=== PATIENT | male | born 1950 | race Caucasian/White ===

== ENCOUNTER 2022-06-25 07:45 | Inpatient (IN) | payer MEDICARE, MEDICAID ==
[~2022-06-25] VITALS: Ht 182.9 cm; Wt 113.0 kg
[2022-06-25 08:24] LABS: BASOPHILS % (AUTO) 0.3 % (0-1); EOSINOPHILS # (AUTO) 0.3 X10'3 (0-0.9); EOSINOPHILS % (AUTO) 3.3 % (0-6); HEMATOCRIT 38.8 % (42.0-52.0); HEMOGLOBIN 12.8 g/dl (14.0-17.9); LYMPHOCYTES # (AUTO) 1.4 X10'3 (1.1-4.8); LYMPHOCYTES % (AUTO) 15.8 % (21-51); MEAN CORPUSCULAR VOLUME 87.9 FL (78-98); MONOCYTES # (AUTO) 0.4 X10'3 (0-0.9); NEUTROPHILS # (AUTO) 6.5 X10'3 (1.8-7.7); NEUTROPHILS % (AUTO) 75.6 % (42-75); PLATELET COUNT 232 X10'3 (140-440); RED BLOOD COUNT 4.41 X10'6 (4.70-6.10); WHITE BLOOD COUNT 8.6 X10'3 (4.5-11.0)
[2022-06-25] MEDS ORDERED: OLANZapine 2.5MG tablet PO ONE (08:50)
[2022-06-25 09:04] LABS: ALANINE AMINOTRANSFERASE 61 U/L (12-78); ALBUMIN 3.5 G/DL (3.4-5.0); ALKALINE PHOSPHATASE 100 IU/L (46-116); ANION GAP 11 (8-16); ASPARTATE AMINO TRANSFERASE 53 U/L (10-37); BILIRUBIN,TOTAL 0.4 MG/DL (0.1-1.0); BLOOD UREA NITROGEN 26 MG/DL (7-18); BUN/CREATININE RATIO 26.8 (5.4-32.0); CALCIUM 8.8 MG/DL (8.5-10.1); CHLORIDE 102 MMOL/L (99-107); CREATININE 0.97 MG/DL (0.60-1.10); GLUCOSE 132 MG/DL (70-104); POTASSIUM 3.3 MMOL/L (3.5-5.1); SODIUM 137 MMOL/L (135-145); TOTAL CARBON DIOXIDE 24.5 MMOL/L (24-32); eGFR 76 ML/MIN
[2022-06-25] MEDS ORDERED: diltiazem 5mg/ml 5ml inj. IV ONE (09:40)
[2022-06-25] MEDS ORDERED: POTASSIUM BICARB 20meq eff tab 20 MEQ TABLET.EFF PO ONE (09:40)
[2022-06-25] MEDS ORDERED: normal saline 1000ml 1,000 ML IV ONE (09:50)
[2022-06-25] MEDS ORDERED: docusate sod 100mg capsule PO PRN (10:45)
[2022-06-25] MEDS ORDERED: glucagon, human recombinant 1mg kit SUBCUT PRN (10:45)
[2022-06-25] MEDS ORDERED: potassium Cl 40MEQ/1/2NS 520ml 520 ML IV PRN (10:45)
[2022-06-25] MEDS ORDERED: albuterol 2.5 MG/3 ML nebule NEB PRN (10:45)
[2022-06-25] MEDS ORDERED: acetaminophen 325mg tablet PO PRN ×2 (10:45)
[2022-06-25] MEDS ORDERED: potassium Cl 20 mEq SR tablet PO PRN (10:45)
[2022-06-25] MEDS ORDERED: insulin Lispro (HumaLOG) vial - multi-dose SQ SCH (10:45)
[2022-06-25] MEDS ORDERED: ondansetron/PF 4mg/2ml inj IV PRN (10:45)
[2022-06-25] MEDS ORDERED: magnesium 4gm in 100ml NS 100 ML IV PRN (10:45)
[2022-06-25] MEDS ORDERED: DEXTROSE 15 GM of carb/4 tabs (each vial/BOTTLE has 4 tablets) PO PRN ×2 (10:45)
[2022-06-25] MEDS ORDERED: ipratropium/albuterol 3ml nebule NEB PRN (10:45)
[2022-06-25] MEDS ORDERED: dextrose 50%-water 50ml dispensing syringe IV PRN ×2 (10:45)
[2022-06-25] MEDS ORDERED: HYDROcodone/acetaminophen 5mg/325mg tablet PO PRN (10:45)
[2022-06-25] MEDS ORDERED: MESSAGE TO PHARMACY PO ONE (10:45)
[2022-06-25] MEDS: nicotine 21mg patch - 24 hr TD SCH (11:22)
[2022-06-25 11:37] LABS: CLARITY,URINE CLEAR (Clear); COLOR,URINE YELLOW (Yellow); GLUCOSE, URINE NEGATIVE (Neg); KETONES,URINE NEGATIVE (Neg); LEUKOCYTE ESTERASE ,URINE NEGATIVE (Neg); NITRITES, URINE NEGATIVE (Neg); OCCULT BLOOD,URINE TRACE-INTACT (Neg); PH,URINE 5.5 (4.8-8.0); PROTEIN,URINE NEGATIVE (Neg); UROBILINOGEN,URINE 0.2 E.U/dL (0.2-1.0)
[2022-06-25 11:41] LABS: UA COLLECTION TYPE CLN CATCH MIDSTREAM
[2022-06-25 11:52] LABS: URINE AMPHETAMINE SCREEN NEGATIVE (Neg); URINE BARBITUATE SCREEN NEGATIVE (Neg); URINE BENZODIAZEPINES SCREEN NEGATIVE (Neg); URINE CANNABINOID SCREEN POSITIVE (Neg); URINE COCAINE SCREEN NEGATIVE (Neg); URINE METHADONE SCREEN NEGATIVE (Neg); URINE OPIATE SCREEN NEGATIVE (Neg); URINE PHENCYCLIDINE SCREEN NEGATIVE (Neg)
[2022-06-25 11:54] LABS: BACTERIA,URINE NONE SEEN /HPF (Neg); MUCUS STRANDS FEW /LPF (Neg); RBC,URINE 0-2 /HPF (0-2); SQUAMOUS EPITHELIAL CELL,UR FEW /LPF (FEW); WBC,URINE 0-4 /HPF (0-4)
[2022-06-25 11:57] LABS: HYALINE CASTS 0-3 /LPF (NEGATIVE)
[2022-06-25] MEDS ORDERED: RISP2TAB85 PO (18:51)
[2022-06-25] MEDS ORDERED: MIRT-87 PO (18:51)
[2022-06-25] MEDS ORDERED: METF-1203 PO (18:51)
[2022-06-25] MEDS ORDERED: LISI10TA27 PO (18:51)
[2022-06-25] MEDS ORDERED: LEVA15HF6 INH (18:51)
[2022-06-25] MEDS ORDERED: HYDR-3686 PO (18:51)
[2022-06-25] MEDS ORDERED: DOCU-22 PO (18:51)
[2022-06-25] MEDS ORDERED: FINA5TAB11 PO (18:51)
[2022-06-25] MEDS ORDERED: ATOR40TA72 PO (18:51)
[2022-06-25] MEDS ORDERED: FLO0.4C PO (18:51)
[2022-06-25] MEDS ORDERED: FERR-106 PO (18:51)
[2022-06-25 19:20] LABS: HEMOGLOBIN A1C 6.2 % (4.5-6.2)
[2022-06-25] MEDS: K and/or MAG REPLACEMENT MC SCH (20:00)
[2022-06-25 20:30] VITALS: BP 144/91
[2022-06-25] MEDS: insulin glargine (Lantus) pen - multi-dose SQ SCH (21:00)
[2022-06-25] MEDS: HYDROcodone/acetaminophen 10/325mg tab PO PRN (21:21)
[2022-06-25] MEDS: potassium Cl 20 mEq SR tablet PO PRN (21:22)
[2022-06-25] MEDS: apixaban 5mg tablet PO SCH (21:22)
[2022-06-25 23:27] VITALS: BP 140/76
[2022-06-25] MEDS: traZODone 50mg tablet PO PRN (23:55)
[2022-06-26] MEDS: potassium Cl 20 mEq SR tablet PO PRN (02:38)
[2022-06-26 02:47] VITALS: BP 147/75
[2022-06-26 06:00] VITALS: BP 156/97
[2022-06-26 07:16] LABS: BASOPHILS % (AUTO) 0.5 % (0-1); EOSINOPHILS # (AUTO) 0.3 X10'3 (0-0.9); EOSINOPHILS % (AUTO) 4.4 % (0-6); HEMATOCRIT 35.5 % (42.0-52.0); HEMOGLOBIN 11.6 g/dl (14.0-17.9); LYMPHOCYTES # (AUTO) 1.9 X10'3 (1.1-4.8); LYMPHOCYTES % (AUTO) 26.1 % (21-51); MEAN CORPUSCULAR HEMOGLOBIN 29.1 PG (27.0-31.0); MEAN CORPUSCULAR HGB CONC 32.8 g/dL (33.0-36.5); MEAN CORPUSCULAR VOLUME 88.7 FL (78-98); MEAN PLATELET VOLUME 8.5 FL (7.4-10.4); MONOCYTES # (AUTO) 0.5 X10'3 (0-0.9); MONOCYTES % (AUTO) 7.3 % (2-12); NEUTROPHILS # (AUTO) 4.4 X10'3 (1.8-7.7); NEUTROPHILS % (AUTO) 61.7 % (42-75); PLATELET COUNT 222 X10'3 (140-440); RED CELL DISTRIBUTION WIDTH 13.9 % (11.5-14.5); WHITE BLOOD COUNT 7.1 X10'3 (4.5-11.0)
[2022-06-26] MEDS: K and/or MAG REPLACEMENT MC SCH ×2 (08:00→19:01)
[2022-06-26] MEDS: HYDROcodone/acetaminophen 10/325mg tab PO PRN (08:35)
[2022-06-26] MEDS: nicotine 21mg patch - 24 hr TD SCH (08:35)
[2022-06-26] MEDS: apixaban 5mg tablet PO SCH ×2 (08:35→19:01)
--- NOTE | 2022-06-26 09:43 | NUR ---
DM consult: Per EMR pt with T2DM, well controlled with A1c 6.2%. DM education not warranted at this time. Recommend discontinuing CHO controlled restriction from diet order. Will continue to follow. Addendum: 06/26/22 at [address] Amended: Links added.
[2022-06-26 11:00] VITALS: BP 167/80
[2022-06-26 11:15] LABS: ALBUMIN 3.1 G/DL (3.4-5.0); ANION GAP 8 (8-16); ASPARTATE AMINO TRANSFERASE 50 U/L (10-37); BILIRUBIN,TOTAL 0.5 MG/DL (0.1-1.0); BLOOD UREA NITROGEN 22 MG/DL (7-18); BUN/CREATININE RATIO 25.6 (5.4-32.0); CALCIUM 8.7 MG/DL (8.5-10.1); CHLORIDE 106 MMOL/L (99-107); CREATININE 0.86 MG/DL (0.60-1.10); GLUCOSE 99 MG/DL (70-104); MAGNESIUM 1.8 MG/DL (1.5-2.4); POTASSIUM 3.9 MMOL/L (3.5-5.1); SODIUM 138 MMOL/L (135-145); TOTAL CARBON DIOXIDE 24.3 MMOL/L (24-32); TOTAL PROTEIN 6.1 G/DL (6.4-8.2); eGFR 87 ML/MIN
[2022-06-26 11:16] LABS: ALANINE AMINOTRANSFERASE 54 U/L (12-78); ALKALINE PHOSPHATASE 76 IU/L (46-116); CHOL/HDL RATIO 3.7 (0.00-4.99); CHOLESTEROL 146 MG/DL (0-200); HDL CHOLESTEROL 39 MG/DL (35-60); LDL CHOLESTEROL 90 MG/DL (50-100); TRIGLYCERIDES 83 MG/DL (20-135)
--- NOTE | 2022-06-26 11:55 | NUR ---
sent to Dr. Cano Message: [id number] Wilber: Please order pt's home medications that have been acknowledged. BP is still high this morning. Thank you. Louise HARTMAN [id number]
[2022-06-26] MEDS: finasteride 5mg tablet PO SCH (12:10)
[2022-06-26] MEDS ORDERED: PERFLUTREN PROTEIN-A MICROSPHR (Optison) 0.22 MG/ML 3ML VIAL IV ONE (12:10)
[2022-06-26] MEDS ORDERED: docusate sod 100mg capsule PO PRN (12:10)
[2022-06-26] MEDS: tamsulosin 0.4mg capsule PO SCH (12:29)
[2022-06-26] MEDS: lisinopril 10 MG tablet PO SCH (12:29)
[2022-06-26] MEDS: metoprolol succinate 25mg (24-HOUR) SR. Tablet PO SCH (12:29)
[2022-06-26] MEDS ORDERED: albuterol 2.5 MG/3 ML nebule NEB SCH (14:00)
[2022-06-26 15:00] VITALS: BP 134/75
[2022-06-26 19:00] VITALS: BP 110/70
[2022-06-26] MEDS: ferrous sulfate 325mg tablet PO SCH (19:01)
[2022-06-26] MEDS ORDERED: mirtazapine 15mg tablet PO SCH (21:00)
[2022-06-26] MEDS ORDERED: hydrOXYzine 25 MG tablet PO SCH (21:00)
[2022-06-26] MEDS ORDERED: risperiDONE 2mg tablet PO SCH (21:00)
[2022-06-26] MEDS ORDERED: atorvastatin 20mg tablet PO SCH (21:00)
[2022-06-26] MEDS: insulin glargine (Lantus) pen - multi-dose SQ SCH (21:00)
[2022-06-26] MEDS: traZODone 50mg tablet PO PRN (21:30)
[2022-06-26 22:27] VITALS: BP 131/66
[2022-06-27 02:15] VITALS: BP 118/60
[2022-06-27 06:00] VITALS: BP 128/80
[2022-06-27 07:01] LABS: BASOPHILS % (AUTO) 0.3 % (0-1); EOSINOPHILS # (AUTO) 0.3 X10'3 (0-0.9); EOSINOPHILS % (AUTO) 4.1 % (0-6); HEMATOCRIT 35.5 % (42.0-52.0); HEMOGLOBIN 11.8 g/dl (14.0-17.9); LYMPHOCYTES # (AUTO) 1.4 X10'3 (1.1-4.8); LYMPHOCYTES % (AUTO) 19.9 % (21-51); MEAN CORPUSCULAR HEMOGLOBIN 29.3 PG (27.0-31.0); MEAN CORPUSCULAR HGB CONC 33.1 g/dL (33.0-36.5); MEAN CORPUSCULAR VOLUME 88.7 FL (78-98); MEAN PLATELET VOLUME 8.4 FL (7.4-10.4); MONOCYTES # (AUTO) 0.5 X10'3 (0-0.9); MONOCYTES % (AUTO) 7.3 % (2-12); NEUTROPHILS # (AUTO) 4.8 X10'3 (1.8-7.7); NEUTROPHILS % (AUTO) 68.4 % (42-75); PLATELET COUNT 212 X10'3 (140-440); RED BLOOD COUNT 4.01 X10'6 (4.70-6.10); RED CELL DISTRIBUTION WIDTH 13.5 % (11.5-14.5); WHITE BLOOD COUNT 7.1 X10'3 (4.5-11.0)
[2022-06-27 07:20] LABS: ALANINE AMINOTRANSFERASE 41 U/L (12-78); ALBUMIN 2.7 G/DL (3.4-5.0); ALBUMIN/GLOBULIN RATIO 0.9 (1.1-1.5); ALKALINE PHOSPHATASE 76 IU/L (46-116); ANION GAP 7 (8-16); ASPARTATE AMINO TRANSFERASE 32 U/L (10-37); BILIRUBIN,TOTAL 0.4 MG/DL (0.1-1.0); BLOOD UREA NITROGEN 18 MG/DL (7-18); BUN/CREATININE RATIO 21.2 (5.4-32.0); CALCIUM 8.3 MG/DL (8.5-10.1); CHLORIDE 104 MMOL/L (99-107); CREATININE 0.85 MG/DL (0.60-1.10); GLUCOSE 113 MG/DL (70-104); POTASSIUM 3.9 MMOL/L (3.5-5.1); SODIUM 136 MMOL/L (135-145); TOTAL CARBON DIOXIDE 25.2 MMOL/L (24-32); TOTAL PROTEIN 5.7 G/DL (6.4-8.2); eGFR 88 ML/MIN
[2022-06-27] MEDS: ferrous sulfate 325mg tablet PO SCH (09:25)
[2022-06-27] MEDS: tamsulosin 0.4mg capsule PO SCH (09:25)
[2022-06-27] MEDS: metoprolol succinate 25mg (24-HOUR) SR. Tablet PO SCH (09:25)
[2022-06-27] MEDS: apixaban 5mg tablet PO SCH (09:25)
[2022-06-27] MEDS: nicotine 21mg patch - 24 hr TD SCH (09:25)
[2022-06-27] MEDS: lisinopril 10 MG tablet PO SCH (09:29)
[2022-06-27] MEDS: finasteride 5mg tablet PO SCH (09:29)
[2022-06-27] MEDS ORDERED: iohexol 350MG/ML 100ml bottle IV ONE (09:53)
--- NOTE | 2022-06-27 11:05 | NUR ---
pt left via wheelchair to ct scan
[2022-06-27 11:20] VITALS: BP 148/76
[2022-06-27] MEDS ORDERED: APIX5TAB3 PO (13:11)
[2022-06-27] MEDS ORDERED: METO-395 PO (13:11)
--- NOTE | 2022-06-27 13:53 | NUR ---
Rn spoke to "Rocael" pt emergency contact. Rocael informed the RN that he will be able to pick him up in the next hour.
== END 2022-06-27 15:35 | disposition home health service (06) | DRG 310 ==
LOC: ER 07:46 → ED HOLD 10:53 → PCU 3S 19:40
PROVIDERS: ADMIT Family Medicine; ATTEND Family Medicine
PROC: B32T1ZZ Computerized Tomography (CT Scan) of Left Pulmonary Artery using Low Osmolar Contrast (ICD-10-PCS; principal; 2022-06-27)
PROC: B3201ZZ Computerized Tomography (CT Scan) of Thoracic Aorta using Low Osmolar Contrast (ICD-10-PCS; 2022-06-27)
PROC: B32S1ZZ Computerized Tomography (CT Scan) of Right Pulmonary Artery using Low Osmolar Contrast (ICD-10-PCS; 2022-06-27)
DX: I48.91 Unspecified atrial fibrillation (principal); I48.92 Unspecified atrial flutter; E11.9 Type 2 diabetes mellitus without complications; Z20.822 Contact with and (suspected) exposure to COVID-19; E66.01 Morbid (severe) obesity due to excess calories; E78.5 Hyperlipidemia, unspecified; F17.210 Nicotine dependence, cigarettes, uncomplicated; F12.90 Cannabis use, unspecified, uncomplicated; E87.6 Hypokalemia; F42.9 Obsessive-compulsive disorder, unspecified; I10 Essential (primary) hypertension; J44.9 Chronic obstructive pulmonary disease, unspecified; N40.0 Benign prostatic hyperplasia without lower urinary tract symptoms; Z59.00 Homelessness unspecified; Z79.01 Long term (current) use of anticoagulants; Z88.0 Allergy status to penicillin; Z91.199 Patient's noncompliance with other medical treatment and regimen due to unspecified reason; Z79.84 Long term (current) use of oral hypoglycemic drugs; Z98.42 Cataract extraction status, left eye; Z98.41 Cataract extraction status, right eye; Z71.6 Tobacco abuse counseling; Z68.33 Body mass index [BMI] 33.0-33.9, adult
CPT/HCPCS: 36415; 71045; 71275; 80053; 80061; 80305; 81001; 82948; 83036; 83735; 83880; 84443; 84484; 85025; 87081; 87811; 93005; 93306; 94760; 96361; 96374; 97116; 97161; 99285; A6212; A6213; G0378; J1815; J3490; J7030; Q0177; Q9967

== ENCOUNTER 2022-08-05 13:31 | Emergency (ER) | payer MEDICARE, MEDICAID ==
[~2022-08-05] VITALS: Ht 180.3 cm; Wt 113.6 kg
[~2022-08-05 13:31] MED LIST: APIX5TAB3 PO; ATOR40TA72 PO; DOCU-22 PO; FERR-106 PO; FINA5TAB11 PO; FLO0.4C PO; HYDR-3686 PO; LEVA15HF6 INH; LISI10TA27 PO; METF-1203 PO; METO-395 PO; MIRT-87 PO; RISP2TAB85 PO
[2022-08-05] MEDS ORDERED: oxyCODONE IR 5mg (immed. release) tablet PO ONE (16:10)
[2022-08-05 16:15] VITALS: BP 146/81
== END 2022-08-05 16:18 | disposition home or self-care (01) ==
LOC: ER 13:31
DX: M25.552 Pain in left hip (principal); I10 Essential (primary) hypertension; E11.9 Type 2 diabetes mellitus without complications; F20.9 Schizophrenia, unspecified; F12.90 Cannabis use, unspecified, uncomplicated; Z72.89 Other problems related to lifestyle; Z79.899 Other long term (current) drug therapy; Z88.0 Allergy status to penicillin; Z79.01 Long term (current) use of anticoagulants
CPT/HCPCS: 82948; 93005; 99283

== ENCOUNTER 2022-08-06 19:05 | Emergency (ER) | payer MEDICARE, MEDICAID ==
--- NOTE | 2022-08-06 19:20 | NUR ---
PT DC FROM HERE LAST NIGHT, NEEDS A RIDE, NO MEDICAL NEEDS AT THIS TIME. WAS TOLD TO CHECK IN BY REGISTRATION. DEE CALLED FOR PT
== END 2022-08-06 19:59 | disposition left against medical advice (07) ==
LOC: ER 19:05
DX: M25.559 Pain in unspecified hip (principal); Z53.21 Procedure and treatment not carried out due to patient leaving prior to being seen by health care provider

== ENCOUNTER 2022-08-10 18:34 | Emergency (ER) | payer MEDICARE, MEDICAID ==
[~2022-08-10] VITALS: Ht 180.3 cm; Wt 113.2 kg
[2022-08-10 18:37] VITALS: BP 133/62
[2022-08-10] MEDS ORDERED: HYDR-3964 PO (19:48)
[2022-08-10] MEDS ORDERED: HYDROcodone/acetaminophen 5mg/325mg tablet PO ONE (19:50)
== END 2022-08-10 20:00 | disposition home or self-care (01) ==
LOC: ER 18:35
DX: M47.816 Spondylosis without myelopathy or radiculopathy, lumbar region (principal); M25.551 Pain in right hip; M25.552 Pain in left hip; G89.29 Other chronic pain; M54.50 Low back pain, unspecified; I10 Essential (primary) hypertension; E11.9 Type 2 diabetes mellitus without complications; F12.90 Cannabis use, unspecified, uncomplicated; Z88.0 Allergy status to penicillin
CPT/HCPCS: 72100; 72170; 99284

== ENCOUNTER 2022-08-19 23:49 | Emergency (ER) | payer MEDICARE, MEDICAID ==
[~2022-08-19] VITALS: Ht 182.9 cm; Wt 110.0 kg
[~2022-08-19 23:49] MED LIST changes: +calcium chloride 100 MG/1 ML inj IV ONE; +epiNEPHrine 0.1mg/ml 10ml syringe ONE; +sod chloride 0.9% 10ml flush syringe IV ONE; +sodium bicarbonate (8.4%) 1 mEq/ml syringe ONE
--- NOTE | 2022-08-20 00:08 | NUR ---
Refer to code blue sheet for documentation.
== END 2022-08-20 02:12 ==
LOC: ER 23:50
DX: I46.9 Cardiac arrest, cause unspecified (principal); R10.32 Left lower quadrant pain; R11.10 Vomiting, unspecified; I48.91 Unspecified atrial fibrillation; I10 Essential (primary) hypertension; E11.9 Type 2 diabetes mellitus without complications; F20.9 Schizophrenia, unspecified; F12.90 Cannabis use, unspecified, uncomplicated; Z72.89 Other problems related to lifestyle; Z88.0 Allergy status to penicillin; Z79.899 Other long term (current) drug therapy
CPT/HCPCS: 31500; 82948; 92950; 99285; J0171; J3490